=== PATIENT | male | born 1960 | race Caucasian/White ===

== ENCOUNTER 2021-04-24 15:48 | Observation (INO) | payer BC ==
[2021-04-24] MEDS ORDERED: Albuterol Sulfate 2.5 mg/3 ml Neb ONE ×2 (16:33→17:33)
[2021-04-24] MEDS ORDERED: Ipratropium Bromide 2.5 ml Neb ONE ×2 (16:33→17:33)
[2021-04-24 16:36] LABS: #Basophils 0.1 10x3/uL (0.0-0.2); #Eosinphils 0.2 10x3/uL (0.0-0.5); #Monocytes 1.4 10x3/uL (0.0-1.1); %Basophils 0.6 % (0.0-2.0); %Eosinophils 1.4 % (0.0-6.0); %Lymphocytes 12.5 % (18.0-47.0); %Monocytes 8.7 % (0.0-10.0); %Neutrophils 76.4 % (40.0-75.0); Hemoglobin 17.3 g/dL (13.5-17.5); Mean Corpuscular HGB CONC 33.4 g/dL (32.0-36.0); Mean Corpuscular Hemoglobin 29.7 pg (27.0-33.0); Mean Corpuscular Volume 88.9 fl (81.2-95.1); Mean Platelet Volume 9.2 fl (7.4-10.4); Platelet Count 421 10x3/uL (150-450); RBC Distribution Width 12.9 % (11.5-14.5); Red Blood Cell (RBC) Count 5.83 10x6/uL (4.32-5.72); White Blood Cell (WBC) Count 15.7 10x3/uL (3.5-10.5)
[2021-04-24 16:51] LABS: ALT (SGPT) 24 U/L (8-55); AST (SGOT) 27 U/L (5-34); Albumin 4.7 g/dL (3.4-4.8); Alkaline Phosphatase 74 U/L (40-110); Anion Gap 20 mmol/L (10-20); BUN (Urea Nitrogen) 18 mg/dL (8.4-25.7); Bilirubin, Total 1.8 mg/dL (0.2-1.2); Calc. Creatinine Clearance 0 mL/min (70-130); Calcium 9.5 mg/dL (7.8-10.44); Carbon Dioxide 27 mmol/L (23-31); Chloride 98 mmol/L (98-107); Globulin 2.9 g/dL (2.4-3.5); Glucose 112 mg/dL (80-115); Potassium 3.9 mmol/L (3.5-5.1); Protein, Total 7.6 g/dL (5.8-8.1); Sodium 141 mmol/L (136-145)
[2021-04-24] MEDS ORDERED: predniSONE 20 MG TAB ONE (17:52)
[2021-04-24] MEDS ORDERED: Acetaminophen 325 MG TAB PO PRN (19:48)
[2021-04-24 20:00] LABS: SARS-CoV-2 NAA Rapid Test DETECTED (NotDetected)
[2021-04-24] MEDS: Metoprolol Tartrate 50 MG TAB PO SCH (22:51)
[2021-04-24] MEDS: TICAGRELOR 90 MG TABLET PO SCH (22:52)
[2021-04-24] MEDS: Atorvastatin Calcium 40 MG TAB PO SCH (22:52)
[2021-04-25] MEDS: Ventolin HFA Inhaler 60 PUFF INHALER INH SCH ×4 (00:55→20:16)
[2021-04-25] MEDS ORDERED: Ventolin HFA Inhaler 60 PUFF INHALER INH PRN (02:30)
[2021-04-25 06:09] LABS: Hemoglobin 14.6 g/dL (13.5-17.5); Mean Corpuscular HGB CONC 33.5 g/dL (32.0-36.0); Mean Corpuscular Hemoglobin 29.4 pg (27.0-33.0); Mean Corpuscular Volume 87.9 fl (81.2-95.1); Mean Platelet Volume 9.2 fl (7.4-10.4); Platelet Count 385 10x3/uL (150-450); RBC Distribution Width 12.8 % (11.5-14.5); Red Blood Cell (RBC) Count 4.96 10x6/uL (4.32-5.72); White Blood Cell (WBC) Count 10.8 10x3/uL (3.5-10.5)
[2021-04-25 06:24] LABS: Magnesium 1.8 mg/dL (1.6-2.6)
[2021-04-25] MEDS: Mometasone 100 MCG/PUFF (1 INHALER) INH SCH ×2 (07:42→20:16)
[2021-04-25 08:17] LABS: Lymphocytes 8 % (21-51); Monocytes 6 % (0-10); Neutrophil 84 % (42-75); Platelet Morphology Comment Appears Adequate; Reactive Lymphocytes 2 % (0-10)
[2021-04-25 08:18] LABS: MDiff Complete? YES
[2021-04-25 08:20] LABS: RBC Morphology Normal
[2021-04-25] MEDS: Metoprolol Tartrate 50 MG TAB PO SCH ×2 (08:38→21:04)
[2021-04-25] MEDS: Furosemide 20 MG TAB PO SCH (08:38)
[2021-04-25] MEDS: TICAGRELOR 90 MG TABLET PO SCH ×2 (08:39→21:04)
[2021-04-25] MEDS: Sacubitril 49 MG/Valsartan 51 MG TABLET PO SCH (08:40)
[2021-04-25] MEDS ORDERED: Non-Formulary Medication 1 EACH (Fluticasone/Umeclidin/Vilanter [Trelegy Ellipta 100-62.5- IH SCH (09:00)
[2021-04-25] MEDS ORDERED: Enoxaparin Sodium 40 MG/0.4 ML SYRINGE SC SCH (09:00)
[2021-04-25] MEDS: Atorvastatin Calcium 40 MG TAB PO SCH (21:04)
[2021-04-25] MEDS: Heparin 5,000 UNITS/ML VIAL SC SCH (21:05)
[2021-04-25] MEDS ORDERED: diphenhydrAMINE 25 MG CAP PO PRN (22:05)
[2021-04-26] MEDS: Ventolin HFA Inhaler 60 PUFF INHALER INH SCH ×3 (00:55→13:29)
[2021-04-26] MEDS: Heparin 5,000 UNITS/ML VIAL SC SCH (07:48)
[2021-04-26] MEDS: Mometasone 100 MCG/PUFF (1 INHALER) INH SCH (08:02)
[2021-04-26] MEDS: Sacubitril 49 MG/Valsartan 51 MG TABLET PO SCH (08:10)
[2021-04-26] MEDS: TICAGRELOR 90 MG TABLET PO SCH (08:10)
[2021-04-26] MEDS: Furosemide 20 MG TAB PO SCH (08:11)
[2021-04-26] MEDS: Metoprolol Tartrate 50 MG TAB PO SCH (08:12)
[2021-04-26 10:17] VITALS: TEMP 97.9
[2021-04-26 12:34] VITALS: BP 98/62
== END 2021-04-26 14:30 | disposition home or self-care (01) ==
LOC: CSHERS 15:48 → CSHTELE 22:27 → OBSVTOIN 04-25 09:24 → INTOOBSV 04-25 09:24
PROVIDERS: ADMIT Family Medicine; ATTEND Family Medicine
DX: J93.83 Other pneumothorax (principal); U07.1 COVID-19; J44.9 Chronic obstructive pulmonary disease, unspecified; I10 Essential (primary) hypertension; I25.10 Atherosclerotic heart disease of native coronary artery without angina pectoris; E78.5 Hyperlipidemia, unspecified; I25.2 Old myocardial infarction; D72.829 Elevated white blood cell count, unspecified; Z87.891 Personal history of nicotine dependence; Z79.02 Long term (current) use of antithrombotics/antiplatelets; Z79.899 Other long term (current) drug therapy; Z95.1 Presence of aortocoronary bypass graft; Z95.5 Presence of coronary angioplasty implant and graft
CPT/HCPCS: 36415; 71045; 71046; 80053; 83735; 83880; 84484; 85007; 85025; 85027; 93005; 94664; 94760; 96372; G0378; J1644; J1650; J7512; J7611; U0002

== ENCOUNTER 2024-02-26 15:52 | Outpatient (CLI) | payer BC | END 2024-02-26 15:53 | disposition home or self-care (01) | LOC: CSHCP 15:52 | PROVIDERS: ATTEND Internal Medicine Critical Care Medicine | DX: J44.1 Chronic obstructive pulmonary disease with (acute) exacerbation (principal) | CPT/HCPCS: 94060; 94664; 94726; 94729; 94760 ==